=== PATIENT | female | born 1940 | race Caucasian/White ===

== ENCOUNTER 2019-04-20 12:24 | Inpatient (IN) | payer OTHER ==
[~2019-04-20] VITALS: Ht 147.3 cm; Wt 52.5 kg
[2019-04-20] MEDS ORDERED: SODIUM CHLORIDE 0.9% 1,000 ML IV ONE (12:39)
[2019-04-20] MEDS ORDERED: SODIUM CHLORIDE FLUSH 10ML SYR IVF ONE (13:00)
--- NOTE | 2019-04-20 13:09 | NUR ---
BREAK NOTE FOR RN: PT LAYING BACK IN BED. UA WALKED TO LAB. NAD NOTED IN PT AT THIS TIME AOX3.
[2019-04-20 13:11] LABS: ALANINE AMINOTRANSFERASE 46 U/L (12-78); ALBUMIN 3.7 g/dL (3.4-5.0); ANION GAP 10 mmol/L (5-15); CALCIUM 9.4 mg/dL (8.5-10.1); CHLORIDE 107 mmol/L (98-107); CREATININE 0.98 mg/dL (0.55-1.02)
[2019-04-20 13:14] LABS: BASOPHILS # (AUTO) 0.01 x10^3/uL (0-0.1); BASOPHILS % (AUTO) 0 % (0-1); EOSINOPHILS # (AUTO) 0.16 x10^3/uL (0-0.4); EOSINOPHILS % (AUTO) 1 % (1-7); LYMPHOCYTES # (AUTO) 0.76 x10^3/uL (1-3.4); LYMPHOCYTES % (AUTO) 7 % (22-44); MD NO; MEAN CORPUSCULAR HEMOGLOBIN 28.9 pg (27.0-34.8); MEAN CORPUSCULAR HGB CONC 33.4 g/dL (32.4-35.8); MEAN CORPUSCULAR VOLUME 86.6 fL (80-100); MEAN PLATELET VOLUME 7.5 fL (7.4-10.4); MONOCYTES # (AUTO) 0.71 x10^3/uL (0.2-0.8); MONOCYTES % (AUTO) 6 % (2-9); NEUTROPHILS # (AUTO) 9.74 x10^3/uL (1.8-6.8); NEUTROPHILS % (AUTO) 86 % (42-75); PLATELET COUNT 302 x10^3/uL (130-400); RED BLOOD COUNT 5.36 x10^6/uL (3.82-5.3); RED CELL DISTRIBUTION WIDTH 15.1 % (9.6-15.2)
[2019-04-20 13:20] LABS: MICROSCOPIC AUTO
[2019-04-20 13:21] LABS: CULTURE INDICATED? NO
[2019-04-20 13:25] LABS: ALKALINE PHOSPHATASE 72 U/L (45-117); BILIRUBIN,TOTAL 0.8 mg/dL (0.2-1.0); CREATINE KINASE, TOTAL 1227 U/L (26-192); TOTAL PROTEIN 7.7 g/dL (6.4-8.2)
--- NOTE | 2019-04-20 13:25 | NUR ---
BREAK NOTE FOR RN: IVF INFUSING AT TIME OF TRANSPORT TO CT. NAD NOTED AT THIS TIME. PT POOR HISTORIAN. DENIES MED HX AT THIS TIME.
[2019-04-20] MEDS ORDERED: MORPHINE SULFATE 4 MG/ML, 1ML IVPush PRN (13:30)
[2019-04-20] MEDS ORDERED: PROMETHAZINE 25 MG/ML, 1ML IM PRN (13:30)
[2019-04-20] MEDS ORDERED: KETOROLAC 30 MG/1 ML IV PRN (13:30)
[2019-04-20] MEDS ORDERED: BACLOFEN 10 MG TABLET PO PRN (13:30)
[2019-04-20] MEDS ORDERED: ACETAMINOPHEN 325 MG TABLET PO PRN (13:30)
[2019-04-20] MEDS ORDERED: OXYcodone IR 5MG TABLET PO PRN (13:30)
--- NOTE | 2019-04-20 13:56 | NUR ---
HOSPITALIST AT BEDSIDE
[2019-04-20] MEDS ORDERED: LIDOCAINE 1%, 10ML ONE (15:12)
--- NOTE | 2019-04-20 15:17 | NUR ---
SPOKE WITH [employer]PATCH [phone]. THEY WILL SEND AN OFFICER TO SPEAK WITH PT ABOUT GETTING PT'S DOG HERCULES FOR A SAFE HOLD WHILE HOSPITALIZED
--- NOTE | 2019-04-20 15:29 | NUR ---
NEIGHBOR AT BEDSIDE. STATES PT IS USUALLY LUCID. HE HAD BEEN CALLING OUT TO HER FROM THE DOOR TO HER HOUSE THROUGH THE WEEKEND AND THE PT WOULD NOT LET HIM COME IN. NEIGHBOR STATES HE WILL FEED PT'S DOG. [employer] CONTACTED AND DISPATCH CANCELLED. NEIGHBOR: [facility] [phone]. WORK NUMBER [phone]
--- NOTE | 2019-04-20 15:32 | NUR ---
OFF FLOOR TO XRAY FOR LP
[2019-04-20 17:01] LABS: GLUCOSE, CSF 72 mg/dL (40-80); TOTAL PROTEIN,CSF 71 mg/dL (15-45)
--- NOTE | 2019-04-20 17:04 | NUR ---
RETURNED FROM RADIOLOGY. TO BE TRANSPORTED TO FLOOR.
--- NOTE | 2019-04-20 17:05 | NUR ---
LAB TECHNOLOGIST STATES PT TOLERATED LP. PT REMAINS CONFUSED AND REPETITIVE. EXPLAINED TO PT SHE IS BEING ADMITTED TO HOSPITAL WITH PT NOT UNDERSTANDING
--- NOTE | 2019-04-20 17:20 | NUR ---
REPORT TO LANA ROBERTS. TO BE TRANSPORTED TO THE FLOOR.
[2019-04-20 18:00] VITALS: BP 164/96
[2019-04-20 19:31] VITALS: BP 162/75
[2019-04-20] MEDS: NS + 20MEQ KCL 1,000 ML IV SCH (20:14)
[2019-04-20] MEDS: ATORVASTATIN 80 MG TABLET PO SCH (20:14)
[2019-04-20] MEDS: ENOXAPARIN 40 MG/0.4 ML SQ SCH (20:14)
[2019-04-21 00:44] VITALS: BP 150/89
[2019-04-21] MEDS: NS + 20MEQ KCL 1,000 ML IV SCH ×3 (03:57→21:34)
[2019-04-21 05:31] LABS: ALBUMIN 3.1 g/dL (3.4-5.0); ANION GAP 7 mmol/L (5-15); CALCIUM 8.6 mg/dL (8.5-10.1); CHLORIDE 112 mmol/L (98-107)
[2019-04-21 05:35] LABS: ALANINE AMINOTRANSFERASE 44 U/L (12-78); ALKALINE PHOSPHATASE 63 U/L (45-117); CHOL/HDL RATIO 4.8; CHOLESTEROL, TOTAL 184 mg/dL (140-239); CREATININE 0.92 mg/dL (0.55-1.02); HDL CHOL % 21 % (28-40); HDL CHOLESTEROL (DIRECT) 38 mg/dL (40-60); LDL CHOLESTEROL,CALCULATED 124 mg/dL (54-169); LDL/HDL RATIO 3.3 (0.5-3.0); TOTAL PROTEIN 6.6 g/dL (6.4-8.2); TRIGLYCERIDES 111 mg/dL (50-200); VLDL CHOLESTEROL 22 mg/dL (0-25)
[2019-04-21 05:43] LABS: BASOPHILS # (AUTO) 0.04 x10^3/uL (0-0.1); BASOPHILS % (AUTO) 1 % (0-1); EOSINOPHILS # (AUTO) 0.05 x10^3/uL (0-0.4); EOSINOPHILS % (AUTO) 1 % (1-7); LYMPHOCYTES # (AUTO) 1.06 x10^3/uL (1-3.4); LYMPHOCYTES % (AUTO) 14 % (22-44); MD NO; MEAN CORPUSCULAR HEMOGLOBIN 28.9 pg (27.0-34.8); MEAN CORPUSCULAR HGB CONC 33.2 g/dL (32.4-35.8); MEAN CORPUSCULAR VOLUME 86.9 fL (80-100); MEAN PLATELET VOLUME 7.7 fL (7.4-10.4); MONOCYTES # (AUTO) 0.73 x10^3/uL (0.2-0.8); MONOCYTES % (AUTO) 10 % (2-9); NEUTROPHILS # (AUTO) 5.84 x10^3/uL (1.8-6.8); NEUTROPHILS % (AUTO) 76 % (42-75); PLATELET COUNT 259 x10^3/uL (130-400); RED BLOOD COUNT 4.78 x10^6/uL (3.82-5.3); RED CELL DISTRIBUTION WIDTH 15.4 % (9.6-15.2)
[2019-04-21 07:12] VITALS: BP 176/80
[2019-04-21] MEDS: ASPIRIN 81 MG TABLET CHEW PO/NG SCH (10:08)
[2019-04-21] MEDS: CLOPIDOGREL 75 MG TABLET PO SCH (10:08)
--- NOTE | 2019-04-21 10:31 | NUR ---
REC: Chopped/NTL; orange sheet posted Addendum: 04/21/19 at 1031 by Dian BUTLER Amended: Links added.
[2019-04-21 13:51] VITALS: BP 154/83
[2019-04-21 18:55] VITALS: BP 159/79
[2019-04-21] MEDS: ATORVASTATIN 80 MG TABLET PO SCH ×2 (20:51→20:59)
[2019-04-21] MEDS: ENOXAPARIN 40 MG/0.4 ML SQ SCH (20:52)
[2019-04-21 23:31] LABS: AMPHETAMINE SCREEN, URINE Negative (Negative); BARBITURATE SCREEN, URINE Negative (Negative); BENZODIAZEPINE SCREEN, URINE Negative (Negative); CANNABINOID SCREEN, URINE Negative (Negative); COCAINE SCREEN, URINE Negative (Negative); METHADONE SCREEN, URINE Negative (Negative); OPIATE SCREEN, URINE Negative (Negative)
[2019-04-22] VITALS (8 sets, daily range): BP systolic 151–204; BP diastolic 61–85
[2019-04-22] MEDS: hydrALAzine 20 MG/ML, 1ML IVPush PRN ×3 (01:35→13:42)
[2019-04-22 05:00] LABS: BASOPHILS # (AUTO) 0.04 x10^3/uL (0-0.1); BASOPHILS % (AUTO) 1 % (0-1); EOSINOPHILS # (AUTO) 0.15 x10^3/uL (0-0.4); EOSINOPHILS % (AUTO) 2 % (1-7); LYMPHOCYTES # (AUTO) 1.28 x10^3/uL (1-3.4); LYMPHOCYTES % (AUTO) 15 % (22-44); MD NO; MEAN CORPUSCULAR HEMOGLOBIN 28.5 pg (27.0-34.8); MEAN CORPUSCULAR HGB CONC 32.9 g/dL (32.4-35.8); MEAN CORPUSCULAR VOLUME 86.7 fL (80-100); MEAN PLATELET VOLUME 7.5 fL (7.4-10.4); MONOCYTES # (AUTO) 0.72 x10^3/uL (0.2-0.8); MONOCYTES % (AUTO) 9 % (2-9); NEUTROPHILS # (AUTO) 6.22 x10^3/uL (1.8-6.8); NEUTROPHILS % (AUTO) 74 % (42-75); PLATELET COUNT 275 x10^3/uL (130-400); RED CELL DISTRIBUTION WIDTH 15.2 % (9.6-15.2)
[2019-04-22 05:09] LABS: ANION GAP 7 mmol/L (5-15); CALCIUM 8.6 mg/dL (8.5-10.1); CHLORIDE 114 mmol/L (98-107)
[2019-04-22 05:12] LABS: CREATININE 0.82 mg/dL (0.55-1.02)
[2019-04-22] MEDS: NS + 20MEQ KCL 1,000 ML IV SCH ×2 (06:43→19:37)
[2019-04-22] MEDS: CLOPIDOGREL 75 MG TABLET PO SCH (10:16)
[2019-04-22] MEDS: DOCUSATE 100 MG CAPSULE PO SCH (10:16)
[2019-04-22] MEDS: ASPIRIN 81 MG TABLET CHEW PO/NG SCH (10:17)
[2019-04-22] MEDS ORDERED: BISACODYL 10 MG SUPP PR PRN (10:30)
[2019-04-22] MEDS ORDERED: LACTULOSE 20 GM/30 ML UDC PO PRN (10:30)
[2019-04-22] MEDS: ONDANSETRON ODT 4 MG PO PRN (13:42)
[2019-04-22] MEDS: NEUTRA PHOS K 250 MG TABLET PO SCH ×2 (15:05→21:10)
[2019-04-22] MEDS ORDERED: LISINOPRIL 10 MG TABLET ONE (15:25)
[2019-04-22] MEDS ORDERED: LISINOPRIL 10 MG TABLET PO ONE (15:30)
[2019-04-22] MEDS: ENOXAPARIN 40 MG/0.4 ML SQ SCH (21:05)
[2019-04-22] MEDS: SENNA/DOCUSATE TABLET PO SCH (21:10)
[2019-04-22] MEDS: ATORVASTATIN 80 MG TABLET PO SCH (21:10)
[2019-04-23] VITALS (7 sets, daily range): BP systolic 138–179; BP diastolic 62–95
[2019-04-23] MEDS: NS + 20MEQ KCL 1,000 ML IV SCH (04:19)
[2019-04-23] MEDS: NEUTRA PHOS K 250 MG TABLET PO SCH (08:48)
[2019-04-23] MEDS: DOCUSATE 100 MG CAPSULE PO SCH (08:48)
[2019-04-23] MEDS: CLOPIDOGREL 75 MG TABLET PO SCH (08:48)
[2019-04-23] MEDS: ASPIRIN 81 MG TABLET CHEW PO/NG SCH (08:49)
[2019-04-23] MEDS ORDERED: LISINOPRIL 10 MG TABLET PO SCH (09:00)
[2019-04-23] MEDS: AMLODIPINE 5 MG TABLET PO SCH (11:48)
[2019-04-23] MEDS: ATORVASTATIN 80 MG TABLET PO SCH (21:11)
[2019-04-23] MEDS: SENNA/DOCUSATE TABLET PO SCH (21:11)
[2019-04-23] MEDS: ENOXAPARIN 40 MG/0.4 ML SQ SCH (21:13)
[2019-04-24 01:08] VITALS: BP 155/62
[2019-04-24 07:02] VITALS: BP 152/81
[2019-04-24] MEDS: CLOPIDOGREL 75 MG TABLET PO SCH (09:06)
[2019-04-24] MEDS: DOCUSATE 100 MG CAPSULE PO SCH (09:06)
[2019-04-24] MEDS: AMLODIPINE 5 MG TABLET PO SCH (09:07)
[2019-04-24] MEDS: ASPIRIN 81 MG TABLET CHEW PO/NG SCH (09:07)
[2019-04-24] MEDS: LISINOPRIL 20 MG TABLET PO SCH (09:07)
[2019-04-24 12:45] VITALS: BP 193/80
[2019-04-24] MEDS: hydrALAzine 20 MG/ML, 1ML IVPush PRN ×2 (13:55→20:11)
[2019-04-24 14:04] VITALS: BP 168/79
[2019-04-24 19:22] VITALS: BP 181/79
[2019-04-24 20:10] VITALS: BP 193/77
[2019-04-24] MEDS: ENOXAPARIN 40 MG/0.4 ML SQ SCH (20:11)
[2019-04-24] MEDS: ATORVASTATIN 80 MG TABLET PO SCH (20:11)
[2019-04-25 00:43] VITALS: BP 155/76
[2019-04-25 05:33] LABS: MICROSCOPIC AUTO
[2019-04-25 05:35] LABS: CULTURE INDICATED? YES
[2019-04-25 06:16] LABS: BASOPHILS # (AUTO) 0.02 x10^3/uL (0-0.1); BASOPHILS % (AUTO) 0 % (0-1); EOSINOPHILS # (AUTO) 0.21 x10^3/uL (0-0.4); EOSINOPHILS % (AUTO) 3 % (1-7); LYMPHOCYTES # (AUTO) 0.76 x10^3/uL (1-3.4); LYMPHOCYTES % (AUTO) 10 % (22-44); MD NO; MEAN CORPUSCULAR HEMOGLOBIN 28.4 pg (27.0-34.8); MEAN CORPUSCULAR HGB CONC 32.4 g/dL (32.4-35.8); MEAN CORPUSCULAR VOLUME 87.7 fL (80-100); MEAN PLATELET VOLUME 7.3 fL (7.4-10.4); MONOCYTES # (AUTO) 0.54 x10^3/uL (0.2-0.8); MONOCYTES % (AUTO) 7 % (2-9); NEUTROPHILS # (AUTO) 5.89 x10^3/uL (1.8-6.8); NEUTROPHILS % (AUTO) 79 % (42-75); PLATELET COUNT 262 x10^3/uL (130-400); RED BLOOD COUNT 4.24 x10^6/uL (3.82-5.3); RED CELL DISTRIBUTION WIDTH 15.8 % (9.6-15.2)
[2019-04-25 06:24] LABS: CHLORIDE 114 mmol/L (98-107)
[2019-04-25 06:27] LABS: ANION GAP 5 mmol/L (5-15); CALCIUM 8.9 mg/dL (8.5-10.1); CREATININE 1.51 mg/dL (0.55-1.02)
[2019-04-25 07:06] VITALS: BP 178/80
[2019-04-25] MEDS: hydrALAzine 20 MG/ML, 1ML IVPush PRN (07:26)
[2019-04-25] MEDS: LISINOPRIL 20 MG TABLET PO SCH (09:37)
[2019-04-25] MEDS: ASPIRIN 81 MG TABLET CHEW PO/NG SCH (09:37)
[2019-04-25] MEDS: CLOPIDOGREL 75 MG TABLET PO SCH (09:37)
[2019-04-25] MEDS: AMLODIPINE 5 MG TABLET PO SCH (09:37)
[2019-04-25] MEDS: DOCUSATE 100 MG CAPSULE PO SCH (09:38)
[2019-04-25 12:38] VITALS: BP 160/71
--- NOTE | 2019-04-25 13:37 | NUR ---
REC CHOPPED/THIN LIQUIDS; ORANGE SHEET WITH DIET RECS AND SWALLOW STRATEGIES POSTED AT BEDSIDE. Addendum: 04/25/19 at 1337 by Peyton BUTLER Amended: Links added.
[2019-04-25] MEDS ORDERED: SODIUM CHLORIDE 0.9% 1,000 ML IV SCH (17:00)
[2019-04-25] MEDS: ATORVASTATIN 80 MG TABLET PO SCH (20:35)
[2019-04-25] MEDS: ENOXAPARIN 30 MG/0.3 ML SQ SCH (20:35)
[2019-04-25 20:46] VITALS: BP 169/73
[2019-04-26 01:17] VITALS: BP 151/63
[2019-04-26] MEDS: ONDANSETRON ODT 4 MG PO PRN (02:37)
[2019-04-26 05:06] LABS: BASOPHILS # (AUTO) 0.01 x10^3/uL (0-0.1); BASOPHILS % (AUTO) 0 % (0-1); EOSINOPHILS # (AUTO) 0.42 x10^3/uL (0-0.4); EOSINOPHILS % (AUTO) 6 % (1-7); LYMPHOCYTES # (AUTO) 0.73 x10^3/uL (1-3.4); LYMPHOCYTES % (AUTO) 10 % (22-44); MD NO; MEAN CORPUSCULAR HEMOGLOBIN 28.6 pg (27.0-34.8); MEAN CORPUSCULAR HGB CONC 32.7 g/dL (32.4-35.8); MEAN CORPUSCULAR VOLUME 87.6 fL (80-100); MEAN PLATELET VOLUME 7.4 fL (7.4-10.4); MONOCYTES # (AUTO) 0.67 x10^3/uL (0.2-0.8); MONOCYTES % (AUTO) 10 % (2-9); NEUTROPHILS # (AUTO) 5.21 x10^3/uL (1.8-6.8); NEUTROPHILS % (AUTO) 74 % (42-75); PLATELET COUNT 274 x10^3/uL (130-400); RED CELL DISTRIBUTION WIDTH 15.5 % (9.6-15.2)
[2019-04-26 05:20] LABS: ANION GAP 6 mmol/L (5-15); CALCIUM 8.1 mg/dL (8.5-10.1); CHLORIDE 110 mmol/L (98-107); CREATININE 0.91 mg/dL (0.55-1.02)
[2019-04-26 06:43] VITALS: BP 166/66
[2019-04-26] MEDS: AMLODIPINE 5 MG TABLET PO SCH (08:30)
[2019-04-26] MEDS: DOCUSATE 100 MG CAPSULE PO SCH (08:30)
[2019-04-26] MEDS: CLOPIDOGREL 75 MG TABLET PO SCH (08:30)
[2019-04-26] MEDS: ASPIRIN 81 MG TABLET CHEW PO/NG SCH (08:30)
[2019-04-26 14:02] VITALS: BP 137/64
[2019-04-26 19:15] VITALS: BP 148/73
[2019-04-26] MEDS: ENOXAPARIN 30 MG/0.3 ML SQ SCH (21:35)
[2019-04-26] MEDS: ATORVASTATIN 80 MG TABLET PO SCH (21:35)
[2019-04-27 02:44] VITALS: BP 160/72
[2019-04-27 07:02] VITALS: BP 139/59
[2019-04-27] MEDS: CLOPIDOGREL 75 MG TABLET PO SCH (08:15)
[2019-04-27] MEDS: AMLODIPINE 5 MG TABLET PO SCH (08:15)
[2019-04-27] MEDS: DOCUSATE 100 MG CAPSULE PO SCH (08:16)
[2019-04-27] MEDS: ASPIRIN 81 MG TABLET CHEW PO/NG SCH (08:16)
[2019-04-27 10:57] VITALS: BP 150/71
[2019-04-27 12:46] VITALS: BP 144/64
[2019-04-27 19:42] VITALS: BP 156/74
[2019-04-27] MEDS: ATORVASTATIN 80 MG TABLET PO SCH (20:51)
[2019-04-27] MEDS: ENOXAPARIN 40 MG/0.4 ML SQ SCH ×2 (20:51→20:55)
[2019-04-28 00:53] LABS: CULTURE INDICATED? YES; MICROSCOPIC INDICATED
[2019-04-28 01:08] VITALS: BP 152/79
[2019-04-28 05:12] LABS: BASOPHILS # (AUTO) 0.03 x10^3/uL (0-0.1); BASOPHILS % (AUTO) 0 % (0-1); EOSINOPHILS # (AUTO) 0.23 x10^3/uL (0-0.4); EOSINOPHILS % (AUTO) 3 % (1-7); LYMPHOCYTES # (AUTO) 0.79 x10^3/uL (1-3.4); LYMPHOCYTES % (AUTO) 10 % (22-44); MD NO; MEAN CORPUSCULAR HEMOGLOBIN 28.5 pg (27.0-34.8); MEAN CORPUSCULAR HGB CONC 33.6 g/dL (32.4-35.8); MEAN CORPUSCULAR VOLUME 84.7 fL (80-100); MEAN PLATELET VOLUME 7.7 fL (7.4-10.4); MONOCYTES # (AUTO) 0.77 x10^3/uL (0.2-0.8); MONOCYTES % (AUTO) 10 % (2-9); NEUTROPHILS # (AUTO) 6.11 x10^3/uL (1.8-6.8); NEUTROPHILS % (AUTO) 77 % (42-75); PLATELET COUNT 279 x10^3/uL (130-400); RED BLOOD COUNT 4.38 x10^6/uL (3.82-5.3); RED CELL DISTRIBUTION WIDTH 15.5 % (9.6-15.2)
[2019-04-28 05:21] LABS: ANION GAP 6 mmol/L (5-15); CALCIUM 8.5 mg/dL (8.5-10.1); CHLORIDE 107 mmol/L (98-107)
[2019-04-28 05:24] LABS: CREATININE 0.81 mg/dL (0.55-1.02)
[2019-04-28 06:54] VITALS: BP 162/73
[2019-04-28] MEDS: CLOPIDOGREL 75 MG TABLET PO SCH (08:57)
[2019-04-28] MEDS: ASPIRIN 81 MG TABLET CHEW PO/NG SCH (08:57)
[2019-04-28] MEDS: DOCUSATE 100 MG CAPSULE PO SCH (08:57)
[2019-04-28] MEDS: AMLODIPINE 5 MG TABLET PO SCH (08:57)
[2019-04-28 13:22] VITALS: BP 144/71
[2019-04-28] MEDS: CEFTRIAXONE PMX 1GM/50ML 50 ML IV SCH (14:50)
[2019-04-28 19:48] VITALS: BP 127/68
[2019-04-28] MEDS: ENOXAPARIN 40 MG/0.4 ML SQ SCH (20:04)
[2019-04-28] MEDS: ONDANSETRON 2MG/ML, 2ML IVPush PRN (20:04)
[2019-04-28] MEDS: ATORVASTATIN 80 MG TABLET PO SCH (21:39)
[2019-04-29 01:09] VITALS: BP 135/65
[2019-04-29] MEDS: ONDANSETRON 2MG/ML, 2ML IVPush PRN ×3 (02:40→22:32)
[2019-04-29 06:57] VITALS: BP 157/73
[2019-04-29] MEDS: AMLODIPINE 5 MG TABLET PO SCH (08:21)
[2019-04-29] MEDS: CLOPIDOGREL 75 MG TABLET PO SCH (08:22)
[2019-04-29] MEDS: ASPIRIN 81 MG TABLET CHEW PO/NG SCH (08:22)
[2019-04-29] MEDS: DOCUSATE 100 MG CAPSULE PO SCH (08:36)
[2019-04-29 10:25] LABS: BASOPHILS # (AUTO) 0.02 x10^3/uL (0-0.1); BASOPHILS % (AUTO) 0 % (0-1); EOSINOPHILS # (AUTO) 0.04 x10^3/uL (0-0.4); EOSINOPHILS % (AUTO) 1 % (1-7); LYMPHOCYTES # (AUTO) 0.71 x10^3/uL (1-3.4); LYMPHOCYTES % (AUTO) 9 % (22-44); MD NO; MEAN CORPUSCULAR HEMOGLOBIN 28.3 pg (27.0-34.8); MEAN CORPUSCULAR HGB CONC 33.2 g/dL (32.4-35.8); MEAN CORPUSCULAR VOLUME 85.1 fL (80-100); MONOCYTES # (AUTO) 0.71 x10^3/uL (0.2-0.8); MONOCYTES % (AUTO) 9 % (2-9); NEUTROPHILS # (AUTO) 6.81 x10^3/uL (1.8-6.8); NEUTROPHILS % (AUTO) 82 % (42-75); PLATELET COUNT 309 x10^3/uL (130-400); RED BLOOD COUNT 4.58 x10^6/uL (3.82-5.3); RED CELL DISTRIBUTION WIDTH 15.1 % (9.6-15.2)
[2019-04-29 10:32] LABS: ANION GAP 7 mmol/L (5-15); CALCIUM 8.4 mg/dL (8.5-10.1); CHLORIDE 105 mmol/L (98-107)
[2019-04-29 10:34] LABS: CREATININE 0.83 mg/dL (0.55-1.02)
[2019-04-29 14:09] VITALS: BP 128/66
[2019-04-29] MEDS: CEFTRIAXONE PMX 1GM/50ML 50 ML IV SCH (14:20)
[2019-04-29] MEDS ORDERED: SODIUM CHLORIDE 0.9%, 500ML IVBOLUS ONE (18:30)
[2019-04-29 18:37] VITALS: BP 133/66
[2019-04-29] MEDS: ATORVASTATIN 80 MG TABLET PO SCH (20:30)
[2019-04-29] MEDS: ENOXAPARIN 40 MG/0.4 ML SQ SCH (20:30)
[2019-04-30 01:02] VITALS: BP 146/67
[2019-04-30] MEDS: AMLODIPINE 5 MG TABLET PO SCH (07:46)
[2019-04-30] MEDS: ASPIRIN 81 MG TABLET CHEW PO/NG SCH (07:46)
[2019-04-30] MEDS: CLOPIDOGREL 75 MG TABLET PO SCH (07:46)
[2019-04-30] MEDS: DOCUSATE 100 MG CAPSULE PO SCH (07:59)
[2019-04-30 08:16] VITALS: BP 150/64
[2019-04-30] MEDS: CEFTRIAXONE PMX 1GM/50ML 50 ML IV SCH (14:11)
[2019-04-30] MEDS: ONDANSETRON 2MG/ML, 2ML IVPush PRN (14:11)
[2019-04-30 15:01] VITALS: BP 156/66
[2019-04-30 18:44] VITALS: BP 155/69
[2019-04-30] MEDS: ATORVASTATIN 80 MG TABLET PO SCH (20:17)
[2019-04-30] MEDS: ENOXAPARIN 40 MG/0.4 ML SQ SCH (20:17)
[2019-05-01 01:30] VITALS: BP 157/70
[2019-05-01 04:58] LABS: BASOPHILS # (AUTO) 0.01 x10^3/uL (0-0.1); BASOPHILS % (AUTO) 0 % (0-1); EOSINOPHILS # (AUTO) 0.01 x10^3/uL (0-0.4); EOSINOPHILS % (AUTO) 0 % (1-7); LYMPHOCYTES # (AUTO) 0.63 x10^3/uL (1-3.4); LYMPHOCYTES % (AUTO) 9 % (22-44); MD NO; MEAN CORPUSCULAR HEMOGLOBIN 28.4 pg (27.0-34.8); MEAN CORPUSCULAR HGB CONC 33.1 g/dL (32.4-35.8); MEAN PLATELET VOLUME 7.1 fL (7.4-10.4); MONOCYTES # (AUTO) 0.56 x10^3/uL (0.2-0.8); MONOCYTES % (AUTO) 8 % (2-9); NEUTROPHILS # (AUTO) 5.84 x10^3/uL (1.8-6.8); NEUTROPHILS % (AUTO) 83 % (42-75); PLATELET COUNT 338 x10^3/uL (130-400); RED BLOOD COUNT 4.64 x10^6/uL (3.82-5.3); RED CELL DISTRIBUTION WIDTH 14.7 % (9.6-15.2)
[2019-05-01 05:08] LABS: ANION GAP 5 mmol/L (5-15); CALCIUM 8.7 mg/dL (8.5-10.1); CHLORIDE 105 mmol/L (98-107)
[2019-05-01 05:13] LABS: ALANINE AMINOTRANSFERASE 66 U/L (12-78); ALKALINE PHOSPHATASE 64 U/L (45-117); BILIRUBIN,TOTAL 0.3 mg/dL (0.2-1.0); CREATININE 0.73 mg/dL (0.55-1.02); TOTAL PROTEIN 6.6 g/dL (6.4-8.2)
[2019-05-01] MEDS: DOCUSATE 100 MG CAPSULE PO SCH (09:54)
[2019-05-01] MEDS: ASPIRIN 81 MG TABLET CHEW PO/NG SCH (09:54)
[2019-05-01] MEDS: CLOPIDOGREL 75 MG TABLET PO SCH (09:54)
[2019-05-01] MEDS: AMLODIPINE 5 MG TABLET PO SCH (09:54)
[2019-05-01 10:00] VITALS: BP 144/75
[2019-05-01] MEDS: PANTOPRAZOLE 40 MG IV IVPush SCH (14:06)
[2019-05-01] MEDS: CEFTRIAXONE PMX 1GM/50ML 50 ML IV SCH (15:15)
[2019-05-01 17:13] VITALS: BP 164/70
[2019-05-01 19:19] VITALS: BP 114/69
[2019-05-01 19:43] VITALS: BP 125/55
[2019-05-01] MEDS: ENOXAPARIN 40 MG/0.4 ML SQ SCH (20:39)
[2019-05-01] MEDS: ONDANSETRON ODT 4 MG PO PRN (20:39)
[2019-05-01] MEDS: ATORVASTATIN 80 MG TABLET PO SCH (20:39)
[2019-05-02 00:40] VITALS: BP_SYST 108; BP_SYST 136; BP_SYST 155; BP_DIAS 63; BP_DIAS 68; BP_DIAS 80
[2019-05-02] MEDS: PANTOPRAZOLE 40 MG IV IVPush SCH (11:20)
[2019-05-02] MEDS: ASPIRIN 81 MG TABLET CHEW PO/NG SCH (11:23)
[2019-05-02] MEDS: CLOPIDOGREL 75 MG TABLET PO SCH (11:24)
[2019-05-02] MEDS: AMLODIPINE 5 MG TABLET PO SCH (11:24)
[2019-05-02] MEDS: DOCUSATE 100 MG CAPSULE PO SCH (11:24)
[2019-05-02 11:25] VITALS: BP 143/64
[2019-05-02 13:33] VITALS: BP 147/67
[2019-05-02] MEDS: CEFTRIAXONE PMX 1GM/50ML 50 ML IV SCH (14:54)
[2019-05-02 17:15] VITALS: BP 151/72
[2019-05-02 19:21] VITALS: BP 127/61
[2019-05-02] MEDS: ENOXAPARIN 40 MG/0.4 ML SQ SCH ×2 (21:00→21:54)
[2019-05-02 21:52] VITALS: BP 133/69
[2019-05-02] MEDS: ATORVASTATIN 80 MG TABLET PO SCH (21:54)
[2019-05-03 01:34] VITALS: BP 143/66
[2019-05-03 06:56] VITALS: BP 144/73
[2019-05-03] MEDS: PANTOPROZOLE 40MG TABLET PO SCH (07:00)
[2019-05-03] MEDS: DOCUSATE 100 MG CAPSULE PO SCH (09:00)
[2019-05-03] MEDS: AMLODIPINE 5 MG TABLET PO SCH (09:00)
[2019-05-03] MEDS: CLOPIDOGREL 75 MG TABLET PO SCH (09:00)
[2019-05-03] MEDS: ASPIRIN 81 MG TABLET CHEW PO/NG SCH (09:00)
[2019-05-03] MEDS ORDERED: PROCHLORPERAZINE 5 MG/ML, 2ML IVPush ONE (10:30)
[2019-05-03] MEDS ORDERED: DIPHENHYDRAMINE 50 MG/ML, 1ML IVPush ONE (10:30)
[2019-05-03 13:45] VITALS: BP 137/68
[2019-05-03 20:04] VITALS: BP 164/68
[2019-05-03] MEDS: ENOXAPARIN 40 MG/0.4 ML SQ SCH (20:36)
[2019-05-03] MEDS: ATORVASTATIN 80 MG TABLET PO SCH (20:36)
[2019-05-04 00:57] VITALS: BP 145/76
[2019-05-04] MEDS: PANTOPROZOLE 40MG TABLET PO SCH (05:20)
[2019-05-04 07:50] VITALS: BP 147/76
[2019-05-04] MEDS: DOCUSATE 100 MG CAPSULE PO SCH (07:57)
[2019-05-04] MEDS: AMLODIPINE 5 MG TABLET PO SCH (07:58)
[2019-05-04] MEDS: CLOPIDOGREL 75 MG TABLET PO SCH (07:58)
[2019-05-04] MEDS: ASPIRIN 81 MG TABLET CHEW PO/NG SCH (07:58)
[2019-05-04 14:48] VITALS: BP 162/76
[2019-05-04 19:43] VITALS: BP 137/68
[2019-05-04] MEDS: ATORVASTATIN 80 MG TABLET PO SCH (21:00)
[2019-05-04] MEDS: ENOXAPARIN 40 MG/0.4 ML SQ SCH (21:00)
[2019-05-05 01:59] VITALS: BP 156/71
[2019-05-05] MEDS: PANTOPROZOLE 40MG TABLET PO SCH (04:27)
[2019-05-05 07:30] VITALS: BP 166/76
[2019-05-05] MEDS: DOCUSATE 100 MG CAPSULE PO SCH (08:04)
[2019-05-05] MEDS: CLOPIDOGREL 75 MG TABLET PO SCH (08:05)
[2019-05-05] MEDS: AMLODIPINE 5 MG TABLET PO SCH (08:05)
[2019-05-05] MEDS: ASPIRIN 81 MG TABLET CHEW PO/NG SCH (08:05)
[2019-05-05 14:35] VITALS: BP 129/70
[2019-05-05 18:31] VITALS: BP 147/80
[2019-05-05] MEDS: ATORVASTATIN 80 MG TABLET PO SCH (21:00)
[2019-05-05] MEDS: ENOXAPARIN 40 MG/0.4 ML SQ SCH (21:00)
[2019-05-06 00:19] VITALS: BP 127/72
[2019-05-06] MEDS: PANTOPROZOLE 40MG TABLET PO SCH (06:00)
[2019-05-06 07:03] VITALS: BP 135/68
[2019-05-06] MEDS: CLOPIDOGREL 75 MG TABLET PO SCH (09:00)
[2019-05-06] MEDS: AMLODIPINE 5 MG TABLET PO SCH (09:00)
[2019-05-06] MEDS: DOCUSATE 100 MG CAPSULE PO SCH (09:00)
[2019-05-06] MEDS: ASPIRIN 81 MG TABLET CHEW PO/NG SCH (09:00)
[2019-05-06 12:32] VITALS: BP 124/54
[2019-05-06 19:47] VITALS: BP 117/62
[2019-05-06] MEDS: ATORVASTATIN 80 MG TABLET PO SCH (21:00)
[2019-05-06] MEDS: ENOXAPARIN 40 MG/0.4 ML SQ SCH (21:00)
[2019-05-07 02:00] VITALS: BP 120/80
[2019-05-07] MEDS: PANTOPROZOLE 40MG TABLET PO SCH (05:24)
[2019-05-07 07:46] LABS: CREATININE 0.92 mg/dL (0.55-1.02)
[2019-05-07 08:15] VITALS: BP 149/70
[2019-05-07] MEDS: AMLODIPINE 5 MG TABLET PO SCH (09:00)
[2019-05-07] MEDS: CLOPIDOGREL 75 MG TABLET PO SCH (09:00)
[2019-05-07] MEDS: DOCUSATE 100 MG CAPSULE PO SCH (09:00)
[2019-05-07] MEDS: ASPIRIN 81 MG TABLET CHEW PO/NG SCH (09:00)
[2019-05-07] MEDS ORDERED: HYDR-3341 PO (10:56)
[2019-05-07] MEDS ORDERED: ATOR-2 PO (10:56)
[2019-05-07] MEDS ORDERED: PANT40TA5 PO (10:56)
[2019-05-07] MEDS ORDERED: AMLO-150 PO (10:56)
[2019-05-07] MEDS ORDERED: CLOP75TA PO (10:56)
[2019-05-07] MEDS ORDERED: ACET325T26 PO (10:56)
[2019-05-07] MEDS ORDERED: ASPI-515 PO/NG (10:56)
== END 2019-05-07 14:42 | DRG 64 ==
LOC: ED 13:47 → EDIP 13:55 → 4WST 17:33
PROVIDERS: ADMIT Hospitalist; ATTEND Internal Medicine
PROC: 0T9B70Z Drainage of Bladder with Drainage Device, Via Natural or Artificial Opening (ICD-10-PCS; principal; 2019-04-20)
PROC: 009U3ZX Drainage of Spinal Canal, Percutaneous Approach, Diagnostic (ICD-10-PCS; 2019-04-20)
PROC: B01B1ZZ Fluoroscopy of Spinal Cord using Low Osmolar Contrast (ICD-10-PCS; 2019-04-20)
DX: I63.9 Cerebral infarction, unspecified (principal); G92 Toxic encephalopathy; M62.82 Rhabdomyolysis; N17.9 Acute kidney failure, unspecified; N39.0 Urinary tract infection, site not specified; B96.20 Unspecified Escherichia coli [E. coli] as the cause of diseases classified elsewhere; B96.89 Other specified bacterial agents as the cause of diseases classified elsewhere; E83.39 Other disorders of phosphorus metabolism; F02.80 Dementia in other diseases classified elsewhere, unspecified severity, without behavioral disturbance, psychotic disturbance, mood disturbance, and anxiety; G30.9 Alzheimer's disease, unspecified; G93.89 Other specified disorders of brain; I10 Essential (primary) hypertension; I37.1 Nonrheumatic pulmonary valve insufficiency; R62.7 Adult failure to thrive; R32 Unspecified urinary incontinence; Z86.73 Personal history of transient ischemic attack (TIA), and cerebral infarction without residual deficits; Z99.3 Dependence on wheelchair; R13.10 Dysphagia, unspecified
CPT/HCPCS: 36415; 70450; 70551; 71045; 74018; 77003; 80048; 80053; 80061; 80307; 81001; 82140; 82550; 82565; 82607; 82945; 83036; 83605; 83735; 84100; 84157; 84443; 85025; 87070; 87077; 87086; 87186; 87205; 89051; 93306; 93880; 99285; G0378; J0696; J1650; J1885; J2405; J3480; Q0162; 92523-GN; C9113; J0360; J7030; J7040

== ENCOUNTER 2019-06-07 05:14 | Inpatient (IN) | payer OTHER ==
[~2019-06-07] VITALS: Ht 152.4 cm; Wt 46.4 kg
[~2019-06-07 05:14] MED LIST: ACET325T26 PO; AMLO-150 PO; ASPI-515 PO/NG; ATOR-2 PO; CLOP75TA PO; HYDR-3341 PO; PANT40TA5 PO
[2019-06-07] MEDS ORDERED: SODIUM CHLORIDE FLUSH 10ML SYR IVF ONE (05:30)
[2019-06-07] MEDS ORDERED: SODIUM CHLORIDE 0.9% 1,000ML IVBOLUS ONE (05:30)
--- NOTE | 2019-06-07 05:58 | NUR ---
FIRST UNIT UNCROSSMATCHED BLOOD INFUSING
[2019-06-07] MEDS ORDERED: ANTI INHIBITOR COAGULANT COMP IVPB ONE (06:00)
--- NOTE | 2019-06-07 06:08 | NUR ---
2ND UNIT UNCROSS MATCHED BLOOD INFUSING. VSS.
[2019-06-07 06:09] LABS: BASOPHILS % (AUTO) 0 % (0-1); EOSINOPHILS # (AUTO) 0.02 x10^3/uL (0-0.4); EOSINOPHILS % (AUTO) 0 % (1-7); LYMPHOCYTES # (AUTO) 0.83 x10^3/uL (1-3.4); LYMPHOCYTES % (AUTO) 13 % (22-44); MD NO; MEAN CORPUSCULAR HEMOGLOBIN 27.8 pg (27.0-34.8); MEAN CORPUSCULAR HGB CONC 32.6 g/dL (32.4-35.8); MEAN CORPUSCULAR VOLUME 85.3 fL (80-100); MEAN PLATELET VOLUME 7.6 fL (7.4-10.4); MONOCYTES % (AUTO) 8 % (2-9); NEUTROPHILS # (AUTO) 4.86 x10^3/uL (1.8-6.8); NEUTROPHILS % (AUTO) 78 % (42-75); PLATELET COUNT 287 x10^3/uL (130-400); RED BLOOD COUNT 4.32 x10^6/uL (3.82-5.3); RED CELL DISTRIBUTION WIDTH 15.7 % (9.6-15.2)
[2019-06-07] MEDS ORDERED: RIVA15TA PO (06:09)
--- NOTE | 2019-06-07 06:14 | NUR ---
PT ROLLED AND CLEANED, COPIOUS AMOUNTS OF BLOOD FROM PT RECTUM WITH LARGE CLOTS. PT IS PALE IN APPEARANCE. VSS. 1ST UNIT UNCROSS MATCHED BLOOD FINISHED INFUSING.
[2019-06-07 06:15] LABS: INTERNATIONAL NORMALIZED RATIO 1.27 (0.93-1.1); PROTHROMBIN TIME 13.5 Seconds (9.6-11.5)
[2019-06-07 06:19] LABS: ALANINE AMINOTRANSFERASE 18 U/L (12-78); ALBUMIN 2.8 g/dL (3.4-5.0); ANION GAP 5 mmol/L (5-15); CALCIUM 8.4 mg/dL (8.5-10.1); CHLORIDE 124 mmol/L (98-107); CREATININE 2.93 mg/dL (0.55-1.02)
[2019-06-07 06:21] LABS: ALKALINE PHOSPHATASE 57 U/L (45-117); BILIRUBIN,TOTAL 0.7 mg/dL (0.2-1.0); TOTAL PROTEIN 6.5 g/dL (6.4-8.2)
[2019-06-07] MEDS ORDERED: TRAM50TA2 PO (06:23)
[2019-06-07] MEDS ORDERED: DIVA125C2 PO (06:23)
[2019-06-07] MEDS ORDERED: QUET25TA5 PO (06:23)
--- NOTE | 2019-06-07 06:24 | NUR ---
LAB REPORTS CRITICAL BUN 102 CR 2.93
[2019-06-07 06:53] LABS: CULTURE INDICATED? YES; MICROSCOPIC INDICATED
[2019-06-07] MEDS ORDERED: SODIUM CHLORIDE FLUSH 10ML SYR IVF PRN (07:30)
[2019-06-07] MEDS ORDERED: CEFTRIAXONE PMX 1GM/50ML 50 ML IVPB ONE (07:30)
--- NOTE | 2019-06-07 07:31 | NUR ---
PT BACK FROM CT. PT CLEANED UP AND PLACED ON CLEAN LINENS. LAB IN NOW TO DRAW BLOOD CULTURES. AKIKO DELCID HERE. AWAITING ROOM ASSIGNMENT
[2019-06-07] MEDS ORDERED: CEFTRIAXONE PMX 1GM/50ML 50 ML ONE (07:45)
--- NOTE | 2019-06-07 08:08 | NUR ---
dr nayak spoke with monika
--- NOTE | 2019-06-07 08:17 | NUR ---
BLOOD CULTURES HAVE BEEN DRAWN. ORDERED ABX GIVEN. PER GI, NG TUBE TO BE PLACED, FLUSHED AND ASPIRATED TO SEE IF FLASH UPPER GI BLEED IS PRESENT. NG PLACED IN RIGHT NARE, PLACEMENT VERIFIED BY RN AND ERP WITH AIR BOLUS AUSCULTATION. NO BLOOD RETURN ON ASPIRATION. NG TUBE REMOVED. PT RESTING CALMLY IN BED AT THIS TIME. WILL CONTINUE TO MONITOR. BILAT BEDRAILS UP.
--- NOTE | 2019-06-07 09:44 | NUR ---
PT CLEANED FOR ANOTHER BLOODY STOOL. LARGE CLOTS COMING OUT OF RECTUM. ONE SOLID PIECE OF STOOL ALSO HAS COME OUT. NEW GOWN PLACED ON PT. WILL CONTINUE TO MOMITOR.
--- NOTE | 2019-06-07 10:44 | NUR ---
REPORT TO SINAN ROBERTS FOR ROOM 543
--- NOTE | 2019-06-07 11:04 | NUR ---
PT BP DECLINING, SEE CHARTED. PT LESS RESPONSIVE. ERP AWARE ORDERS PLACED. PT UNABLE TO GO TO [facility] AT THIS TIME THEY CAN NOT MONITOR BP. CENTRAL LINE HAS BEEN PLACED IN RIGHT IJ. CXR DONE FOR CONFORMATION, STILL AWAITING READ. PT CLEANED, RECTAL BLEEDING HAS DECREASED. NEW APRIL PLACED UNDER PT. REPEAT H/H STILL SHOWS PENDING. LAB HAS BEEN CALLED TO RESULT THIS, STATED THEY WILL LOOK INTO IT.
[2019-06-07] MEDS ORDERED: NOREPINEPHRINE 8 MG in SODIUM CHLORIDE 0.9% 242 ML IV PRN ×2 (11:12→11:30)
[2019-06-07] MEDS: SODIUM CHLORIDE 0.9% 1,000 ML IV SCH (12:25)
[2019-06-07] MEDS ORDERED: POLYETHYLENE GLYCOL 17 GM PACKET PO PRN (12:30)
[2019-06-07] MEDS ORDERED: ONDANSETRON 2MG/ML, 2ML IVPush PRN (12:30)
[2019-06-07] MEDS ORDERED: BISACODYL 10 MG SUPP PR PRN (12:30)
[2019-06-07] MEDS ORDERED: ACETAMINOPHEN 325 MG TABLET PO PRN (12:30)
[2019-06-07] MEDS: PIPERACILLIN/TAZO/PMX 2.25GM 50 ML IV SCH ×2 (14:35→20:15)
[2019-06-07 18:20] VITALS: BP 104/63
[2019-06-07] MEDS: DIVALPROEX 125 MG CAP.SPRINK PO SCH (20:15)
[2019-06-07] MEDS: PANTOPRAZOLE 40 MG IV IVPush SCH (20:15)
[2019-06-07] MEDS: ATORVASTATIN 80 MG TABLET PO SCH (20:15)
[2019-06-08] MEDS: SODIUM CHLORIDE 0.9% 1,000 ML IV SCH ×2 (01:00→12:48)
[2019-06-08 01:02] VITALS: BP 123/70
[2019-06-08] MEDS: PIPERACILLIN/TAZO/PMX 2.25GM 50 ML IV SCH ×3 (02:34→14:24)
[2019-06-08 05:37] LABS: BASOPHILS # (AUTO) 0.01 x10^3/uL (0-0.1); BASOPHILS % (AUTO) 0 % (0-1); EOSINOPHILS # (AUTO) 0.02 x10^3/uL (0-0.4); EOSINOPHILS % (AUTO) 0 % (1-7); LYMPHOCYTES # (AUTO) 1.03 x10^3/uL (1-3.4); LYMPHOCYTES % (AUTO) 12 % (22-44); MD NO; MEAN CORPUSCULAR HEMOGLOBIN 28.2 pg (27.0-34.8); MEAN CORPUSCULAR HGB CONC 33.1 g/dL (32.4-35.8); MEAN PLATELET VOLUME 7.6 fL (7.4-10.4); MONOCYTES # (AUTO) 0.63 x10^3/uL (0.2-0.8); MONOCYTES % (AUTO) 8 % (2-9); NEUTROPHILS # (AUTO) 6.76 x10^3/uL (1.8-6.8); NEUTROPHILS % (AUTO) 80 % (42-75); PLATELET COUNT 194 x10^3/uL (130-400); RED BLOOD COUNT 3.13 x10^6/uL (3.82-5.3); RED CELL DISTRIBUTION WIDTH 14.8 % (9.6-15.2)
[2019-06-08 05:46] LABS: CHLORIDE 130 mmol/L (98-107)
[2019-06-08 05:53] LABS: ALANINE AMINOTRANSFERASE 34 U/L (12-78); ALBUMIN 2.2 g/dL (3.4-5.0); ALKALINE PHOSPHATASE 41 U/L (45-117); ANION GAP 6 mmol/L (5-15); BILIRUBIN,TOTAL 0.5 mg/dL (0.2-1.0); CALCIUM 7.2 mg/dL (8.5-10.1); CREATININE 2.12 mg/dL (0.55-1.02)
[2019-06-08 06:51] VITALS: BP 122/64
[2019-06-08] MEDS: PANTOPRAZOLE 40 MG IV IVPush SCH ×2 (08:45→19:35)
[2019-06-08] MEDS: SENNA/DOCUSATE TABLET PO SCH (08:45)
[2019-06-08] MEDS: DIVALPROEX 125 MG CAP.SPRINK PO SCH ×2 (08:45→19:34)
[2019-06-08] MEDS ORDERED: MIDAZOLAM 1 MG/ML, 5ML ONE ×2 (09:58→11:22)
[2019-06-08] MEDS ORDERED: NALOXONE 1 MG/ML, 2ML ONE ×2 (09:58→11:23)
[2019-06-08] MEDS ORDERED: FENTANYL PF 100 MCG/2ML ONE ×3 (09:58→11:22)
[2019-06-08] MEDS ORDERED: FLUMAZENIL 0.1 MG/1 ML, 5ML ONE ×2 (09:58→11:22)
[2019-06-08] MEDS ORDERED: LIDOCAINE 1%, 10ML ONE (11:11)
[2019-06-08] MEDS ORDERED: VISIPAQUE 270 MG/ML, 50ML BOTTLE ONE (11:30)
[2019-06-08 12:42] VITALS: BP 123/67
--- NOTE | 2019-06-08 15:38 | NUR ---
REC: Pureed diet/NTL; 1:1 assist; kim elizondo; orange sheet posted Addendum: 06/08/19 at 1539 by Dian BUTLER Amended: Links added.
[2019-06-08] MEDS: DEXTROSE 5% 1,000 ML IV SCH (17:46)
[2019-06-08 18:51] VITALS: BP 128/73
[2019-06-08] MEDS: ATORVASTATIN 80 MG TABLET PO SCH (19:34)
[2019-06-08] MEDS: OXYcodone IR 5MG TABLET PO PRN (19:35)
[2019-06-09] VITALS (8 sets, daily range): BP systolic 112–143; BP diastolic 59–80
[2019-06-09] MEDS: DEXTROSE 5% 1,000 ML IV SCH ×3 (03:45→23:30)
[2019-06-09] MEDS: DIVALPROEX 125 MG CAP.SPRINK PO SCH ×2 (09:43→20:25)
[2019-06-09] MEDS: PANTOPRAZOLE 40 MG IV IVPush SCH ×2 (09:43→20:25)
[2019-06-09] MEDS: SENNA/DOCUSATE TABLET PO SCH (09:43)
[2019-06-09] MEDS: CEFTRIAXONE PMX 2GM/50ML 50 ML IV SCH (17:35)
[2019-06-09] MEDS: OXYcodone IR 5MG TABLET PO PRN (20:25)
[2019-06-09] MEDS: ATORVASTATIN 80 MG TABLET PO SCH (20:25)
[2019-06-10 00:39] VITALS: BP 152/84
[2019-06-10 04:37] LABS: ANION GAP 6 mmol/L (5-15); CALCIUM 7.5 mg/dL (8.5-10.1); CHLORIDE 124 mmol/L (98-107)
[2019-06-10 04:38] LABS: CREATININE 0.97 mg/dL (0.55-1.02)
[2019-06-10] MEDS: POTASSIUM CHLORIDE 20 MEQ TAB.ER.PRT PO SCH ×3 (08:30→10:30)
[2019-06-10] MEDS: PANTOPRAZOLE 40 MG IV IVPush SCH ×2 (08:40→21:31)
[2019-06-10] MEDS: DIVALPROEX 125 MG CAP.SPRINK PO SCH ×2 (08:40→21:31)
[2019-06-10] MEDS: SENNA/DOCUSATE TABLET PO SCH (08:41)
[2019-06-10] MEDS ORDERED: POTASSIUM CHLORIDE 20 MEQ TAB.ER.PRT ONE ×2 (08:48→08:49)
[2019-06-10 08:56] VITALS: BP 113/66
[2019-06-10 14:39] VITALS: BP 136/76
[2019-06-10] MEDS: CEFTRIAXONE PMX 2GM/50ML 50 ML IV SCH (16:39)
[2019-06-10] MEDS: DEXTROSE 5% 1,000 ML IV SCH (16:39)
[2019-06-10 19:15] VITALS: BP 131/72
[2019-06-10] MEDS ORDERED: PINK LADY ENEMA 490 ML BOTTLE PR SCH (21:00)
[2019-06-10] MEDS: ATORVASTATIN 80 MG TABLET PO SCH (21:31)
[2019-06-11 00:39] VITALS: BP 126/68
[2019-06-11] MEDS: DEXTROSE 5% 1,000 ML IV SCH (04:40)
[2019-06-11 05:09] LABS: CHLORIDE 113 mmol/L (98-107)
[2019-06-11 05:19] LABS: ANION GAP 5 mmol/L (5-15); CALCIUM 7.4 mg/dL (8.5-10.1); CREATININE 0.83 mg/dL (0.55-1.02)
[2019-06-11 07:16] VITALS: BP 139/76
[2019-06-11] MEDS: SENNA/DOCUSATE TABLET PO SCH (08:24)
[2019-06-11] MEDS: PANTOPRAZOLE 40 MG IV IVPush SCH ×2 (08:24→20:57)
[2019-06-11] MEDS: DIVALPROEX 125 MG CAP.SPRINK PO SCH ×2 (08:24→20:57)
[2019-06-11] MEDS ORDERED: POTASSIUM CHLORIDE 40 MEQ in SODIUM CHLORIDE 0.9% 500 ML IV ONE ×2 (08:30→12:30)
[2019-06-11] MEDS: SULFAMETH./TRIMETHOPRIM DS 800MG/160MG TABLET PO SCH ×2 (12:14→20:57)
[2019-06-11 13:31] VITALS: BP 101/61
[2019-06-11] MEDS: CEFTRIAXONE PMX 2GM/50ML 50 ML IV SCH (16:01)
[2019-06-11 20:55] VITALS: BP 129/77
[2019-06-11] MEDS: ATORVASTATIN 80 MG TABLET PO SCH (20:57)
[2019-06-12 00:28] VITALS: BP 122/76
[2019-06-12 05:03] LABS: ANION GAP 7 mmol/L (5-15); CALCIUM 7.2 mg/dL (8.5-10.1); CHLORIDE 115 mmol/L (98-107)
[2019-06-12 05:06] LABS: CREATININE 0.86 mg/dL (0.55-1.02)
[2019-06-12 06:55] VITALS: BP 130/77
[2019-06-12] MEDS: SENNA/DOCUSATE TABLET PO SCH (09:00)
[2019-06-12] MEDS: SULFAMETH./TRIMETHOPRIM DS 800MG/160MG TABLET PO SCH ×2 (09:00→20:24)
[2019-06-12] MEDS: PANTOPRAZOLE 40 MG IV IVPush SCH ×2 (09:00→20:24)
[2019-06-12] MEDS: DIVALPROEX 125 MG CAP.SPRINK PO SCH ×2 (10:58→20:24)
[2019-06-12] MEDS ORDERED: POLY17PO5 PO (11:29)
[2019-06-12] MEDS ORDERED: PANT20TA2 PO (11:29)
[2019-06-12] MEDS ORDERED: Sulfameth./Trimethoprim Ds PO (11:29)
[2019-06-12 12:15] VITALS: BP 142/81
[2019-06-12] MEDS ORDERED: MAGNESIUM SULFATE PMX 2GM/50ML 50 ML IV ONE (13:00)
[2019-06-12] MEDS ORDERED: POTASSIUM PHOSPHATE 44 MEQ in SODIUM CHLORIDE 0.9% 500 ML IV ONE (13:00)
[2019-06-12] MEDS: ATORVASTATIN 80 MG TABLET PO SCH (20:24)
[2019-06-12 20:56] VITALS: BP 137/78
[2019-06-13 00:40] VITALS: BP 135/79
[2019-06-13 08:07] VITALS: BP 138/77
[2019-06-13] MEDS: PANTOPRAZOLE 40 MG IV IVPush SCH ×2 (10:27→21:17)
[2019-06-13] MEDS: SENNA/DOCUSATE TABLET PO SCH (10:32)
[2019-06-13] MEDS: SULFAMETH./TRIMETHOPRIM DS 800MG/160MG TABLET PO SCH ×2 (10:32→21:17)
[2019-06-13] MEDS: DIVALPROEX 125 MG CAP.SPRINK PO SCH ×2 (10:32→21:17)
[2019-06-13 11:39] LABS: ANION GAP 3 mmol/L (5-15); CALCIUM 7.3 mg/dL (8.5-10.1); CHLORIDE 113 mmol/L (98-107); CREATININE 0.92 mg/dL (0.55-1.02)
[2019-06-13 12:06] VITALS: BP 123/74
[2019-06-13] MEDS ORDERED: MAGNESIUM SULFATE/D5W 100 ML IV ONE (12:30)
[2019-06-13] MEDS ORDERED: POTASSIUM PHOSPHATE 44 MEQ in SODIUM CHLORIDE 0.9% 500 ML IV ONE (13:00)
[2019-06-13 18:10] VITALS: BP 147/72
[2019-06-13] MEDS: ATORVASTATIN 80 MG TABLET PO SCH (21:17)
[2019-06-14 01:00] VITALS: BP 145/82
[2019-06-14 07:41] VITALS: BP 140/74
[2019-06-14] MEDS: SULFAMETH./TRIMETHOPRIM DS 800MG/160MG TABLET PO SCH (09:23)
[2019-06-14] MEDS: SENNA/DOCUSATE TABLET PO SCH (09:24)
[2019-06-14] MEDS: PANTOPRAZOLE 40 MG IV IVPush SCH (09:24)
[2019-06-14] MEDS: DIVALPROEX 125 MG CAP.SPRINK PO SCH (09:24)
== END 2019-06-14 12:45 | DRG 853 ==
LOC: ED 07:18 → EDIP 07:19 → CCU 11:52 → 4WST 18:15
PROVIDERS: ADMIT Internal Medicine; ATTEND Family Medicine
PROC: 02H633Z Insertion of Infusion Device into Right Atrium, Percutaneous Approach (ICD-10-PCS; 2019-06-07)
PROC: B548ZZA Ultrasonography of Superior Vena Cava, Guidance (ICD-10-PCS; 2019-06-07)
PROC: 30233N1 Transfusion of Nonautologous Red Blood Cells into Peripheral Vein, Percutaneous Approach (ICD-10-PCS; 2019-06-07)
PROC: 0T9B70Z Drainage of Bladder with Drainage Device, Via Natural or Artificial Opening (ICD-10-PCS; 2019-06-07)
PROC: 06H03DZ Insertion of Intraluminal Device into Inferior Vena Cava, Percutaneous Approach (ICD-10-PCS; principal; 2019-06-08)
DX: A41.51 Sepsis due to Escherichia coli [E. coli] (principal); N17.0 Acute kidney failure with tubular necrosis; G93.41 Metabolic encephalopathy; R57.8 Other shock; E43 Unspecified severe protein-calorie malnutrition; N12 Tubulo-interstitial nephritis, not specified as acute or chronic; E87.0 Hyperosmolality and hypernatremia; I82.403 Acute embolism and thrombosis of unspecified deep veins of lower extremity, bilateral; D62 Acute posthemorrhagic anemia; K92.2 Gastrointestinal hemorrhage, unspecified; K59.00 Constipation, unspecified; F02.80 Dementia in other diseases classified elsewhere, unspecified severity, without behavioral disturbance, psychotic disturbance, mood disturbance, and anxiety; G30.9 Alzheimer's disease, unspecified; K21.9 Gastro-esophageal reflux disease without esophagitis; I69.322 Dysarthria following cerebral infarction; I69.391 Dysphagia following cerebral infarction; B95.7 Other staphylococcus as the cause of diseases classified elsewhere; I10 Essential (primary) hypertension; E83.39 Other disorders of phosphorus metabolism; E83.42 Hypomagnesemia; E87.6 Hypokalemia; R31.9 Hematuria, unspecified; Z79.01 Long term (current) use of anticoagulants; Z87.440 Personal history of urinary (tract) infections; Z88.8 Allergy status to other drugs, medicaments and biological substances; Z68.20 Body mass index [BMI] 20.0-20.9, adult; Z79.899 Other long term (current) drug therapy
CPT/HCPCS: 36415; 36556; 37191; 51702; 71045; 74176; 76937; 78278; 80048; 80053; 81001; 83605; 83735; 84100; 84145; 84443; 85014; 85018; 85025; 85610; 85730; 86850; 86900; 86923; 87040; 87077; 87081; 87086; 87186; 93005; 93970; 96374; 99156; 99291; C1880; C1894; G0378; J0696; J2250; J2543; J3010; J3480; J7070; J7198; Q9966; A9560; C9113; J2310; J3475; J7030; J7040; J7050; P9016